=== PATIENT | male | born 1990 | race Caucasian/White ===

== ENCOUNTER 2018-08-17 10:25 | Emergency (ER) | payer SELFPAY ==
[2018-08-17] MEDS ORDERED: Ketorolac 60 MG/2 ML SDV IM ONE (10:47)
--- NOTE | 2018-08-17 10:52 | EDM.PDOC ---
ED HPI GENERAL MEDICAL PROBLEM - General Chief Complaint: Lower Extremity Injury/Pain Stated Complaint: HURT LEFT ANKLE Time Seen by Provider: 08/17/18 10:31 - History of Present Illness INITIAL COMMENTS - FREE TEXT/NARRATIVE: HISTORY AND PHYSICAL: History of present illness: The patient is a healthy 27-year-old male who presents with complaints of left ankle and foot pain that started last evening after the area was trapped between a bull and a chute. 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 He did not fall off hit his head pass out or black out and has no neck or back pain and no other extremity complaints. He has no left knee or hip pain and no thigh pain. Neurosensory is intact in the foot and he has noticed swelling to the dorsal aspect of his foot as well as his ankle and there is pain with weightbearing. He took Tylenol for the pain and it is not working so he came for evaluation Review of systems: As per history of present illness and below otherwise all systems reviewed and negative. Past medical history: As per history of present illness and as reviewed below otherwise noncontributory. Surgical history: As per history of present illness and as reviewed below otherwise noncontributory. Social history: No reported history of drug or alcohol abuse. Family history: As per history of present illness and as reviewed below otherwise noncontributory. Physical exam: General: Well-developed well-nourished thin man who is nontoxic and vital signs are noted by me HEENT: Atraumatic, normocephalic, negative for conjunctival pallor or scleral icterus, mucous membranes moist, throat clear, neck supple, nontender, trachea midline. Lungs: Clear to auscultation, breath sounds equal bilaterally, chest nontender. Heart: S1S2, regular rate and rhythm no overt murmurs Abdomen: Soft, nondistended, nontender. NABS Pelvis: Stable nontender. No lateral hip tenderness on the left Genitourinary: Deferred. Rectal: Deferred. Extremities: Atraumatic with full range of motion of all extremities with the exception of left ankle and foot. At the left ankle there is circumferential swelling but no gross malalignment is appreciated and there is diffuse tenderness with palpation of the area both medially and laterally and there is a superficial abrasion seen just proximal to the ankle. There is no proximal tib -fib or knee tenderness defects or deformities or soft tissue swelling. Distally there is swelling and tenderness to the dorsal aspect of the proximal foot but not at the metatarsals calcaneus or toes. Pulses are strong and Refill is normal, the legs are, negative for cords or calf pain. Neurovascular unremarkable. Neuro: Awake, alert, oriented. Cranial nerves II through XII unremarkable. Cerebellum unremarkable. Motor and sensory unremarkable throughout. Exam nonfocal. Diagnostics: X-ray of the left ankle and foot, one view tib-fib left Therapeutics: Ice pack, elevation, Toradol IM, ortho boot and crutches After reviewing the x-rays and the x-ray findings I discussed the patient's prior injury and he says that he did have a fibular fracture in the past. He is aware that there is no new active fracture but there is a lot of soft tissue swelling and this will need follow-up in the orthopedic clinic. I Will give him diclofenac for home as well as a few [place] for sleep. We will give him an ortho boot and crutches. He states understanding on all of these directions as well as no weightbearing Impression: Left ankle and foot injury Definitive disposition and diagnosis as appropriate pending reevaluation and review of above. Left Ankle Pain Score (Numeric/FACES): 5 - Related Data Allergies Allergy/AdvReac Type Severity Reaction Status Date / Time No Known Allergies Allergy Verified 08/17/18 10:41 Home Meds: Home Meds . [No Known Home Meds] 12/08/17 [History] Past Medical History HEENT History: Reports: None Cardiovascular History: Reports: None Respiratory History: Reports: None Gastrointestinal History: Reports: None Genitourinary History: Reports: None Musculoskeletal History: Reports: None Neurological History: Reports: None Psychiatric History: Reports: None Endocrine/Metabolic History: Reports: None Hematologic History: Reports: None Immunologic History: Reports: None Oncologic (Cancer) History: Reports: None Dermatologic History: Reports: None - Past Surgical History Head Surgeries/Procedures: Reports: None HEENT Surgical History: Reports: None Cardiovascular Surgical History: Reports: None Respiratory Surgical History: Reports: None GI Surgical History: Reports: None Male Surgical History: Reports: None Endocrine Surgical History: Reports: None Neurological Surgical History: Reports: None Musculoskeletal Surgical History: Reports: None Oncologic Surgical History: Reports: None Dermatological Surgical History: Reports: None Social & Family History - Family History Family Medical History: Unobtainable - Tobacco Use Smoking Status *Q: Never Smoker Second Hand Smoke Exposure: No - Caffeine Use Caffeine Use: Reports: Coffee - Alcohol Use Days Per Week of Alcohol Use: 2 Number of Drinks Per Day: 6 Total Drinks Per Week: 12 - Recreational Drug Use Recreational Drug Use: No Review of Systems - Review of Systems Review Of Systems: ROS reveals no pertinent complaints other than HPI. ED EXAM, GENERAL - Physical Exam Exam: See Below (See dictation) Course - Vital Signs Last Recorded V/S: Last Vital Signs Temp 36.2 C 08/17/18 10:37 Pulse 91 08/17/18 10:37 Resp 18 08/17/18 10:37 BP 144/79 H 08/17/18 10:37 Pulse Ox 99 08/17/18 10:37 - Orders/Labs/Meds Orders: Active Orders 24 hr Category Date Time Status DME for Discharge [COMM] Stat Oth 08/17/18 12:12 Ordered Meds: Medications Discontinued Medications Generic Name Dose Route Start Last Admin Trade Name Freq PRN Reason Stop Dose Admin Ketorolac Tromethamine 60 mg 08/17/18 10:47 08/17/18 11:20 Toradol IM 08/17/18 10:48 60 mg ONETIME ONE Administration Departure - Departure Time of Disposition: 12:18 Disposition: Home, Self-Care 01 Condition: Good Clinical Impression: Left ankle injury Qualifiers: Encounter type: initial encounter Qualified Code(s): S99.912A - Unspecified injury of left ankle, initial encounter - Discharge Information Forms: ED Department Discharge Additional Instructions: The following information is given to patients seen in the emergency department who are being discharged to home. This information is to outline your options for follow-up care. We provide all patients seen in our emergency department with a follow-up referral. The need for follow-up, as well as the timing and circumstances, are variable depending upon the specifics of your emergency department visit. If you don't have a primary care physician on staff, we will provide you with a referral. We always advise you to contact your personal physician following an emergency department visit to inform them of the circumstance of the visit and for follow-up with them and/or the need for any referrals to a consulting specialist. The emergency department will also refer you to a specialist when appropriate. This referral assures that you have the opportunity for followup care with a specialist. All of these measure are taken in an effort to provide you with optimal care, which includes your followup. Under all circumstances we always encourage you to contact your private physician who remains a resource for coordinating your care. When calling for followup care, please make the office aware that this follow-up is from your recent emergency room visit. If for any reason you are refused follow-up, please contact the [facility] emergency department at and ask to speak to the emergency department charge nurse. [facility]--Orthopedic clinic Professional [address] [address] Ice and elevate the area and where the ortho boot you have been given here in the ED at all times loosening the Velcro straps and/or removing the boot only at sleep times. Use crutches at all times until you are followed up in the clinic and do not weight-bear. Use medications as prescribed, diclofenac, along with [id number] Tylenol and only add the [place] you have been given for sleep times or extreme pain. Return to ER as needed and as discussed - My Orders Last 24 Hours: My Active Orders 08/17/18 12:12 DME for Discharge [COMM] Stat - Assessment/Plan Last 24 Hours: My Active Orders 08/17/18 12:12 DME for Discharge [COMM] Stat
--- NOTE | 2018-08-17 12:08 | CR ---
EXAMINATION: Left foot, left tibia and fibula, and left ankle HISTORY: Trauma COMPARISON: None TECHNIQUE: 3 views of the left ankle, 2 views of the left tibia and fibula, and 3 views of the left foot FINDINGS: There is no acute osseous abnormality, dislocation, or fracture. Bone mineralization, joint spaces, and ankle mortise appear intact. Mild soft tissue swelling is noted over the distal fibula and anterior aspect of the tibiotalar joint. Old healed distal fibular fracture deformity noted. Remaining osseous structures and joint spaces appear preserved. Bone mineralization is otherwise normal. IMPRESSION: 1. Soft tissue swelling adjacent to the ankle without a definite acute osseous abnormality.
== END 2018-08-17 12:29 | disposition home or self-care (01) ==
LOC: MW.ED 10:25
DX: S99.912A Unspecified injury of left ankle, initial encounter (principal); S99.922A Unspecified injury of left foot, initial encounter; W55.22XA Struck by cow, initial encounter
CPT/HCPCS: 73590; 73610; 73630; 96372; 99283; J1885

== ENCOUNTER 2023-12-15 08:58 | Emergency (ER) | payer BC ==
[2023-12-15] MEDS: Benzonatate 100 MG Cap PO ONE (09:36)
[2023-12-15 10:31] LABS: CORONAVIRUS COVID-19 NAA NEGATIVE (NEGATIVE); INFLUENZA A NAA NEGATIVE (NEGATIVE); INFLUENZA B NAA NEGATIVE (NEGATIVE); RESPIRATORY SYNCYTIAL VIR NAA NEGATIVE (NEGATIVE)
== END 2023-12-15 10:59 | disposition home or self-care (01) ==
LOC: MW.ED 08:58
DX: J18.9 Pneumonia, unspecified organism (principal); Z75.8 Other problems related to medical facilities and other health care
CPT/HCPCS: 0241U; 71045; 99285; A9270; 99283